=== PATIENT | female | born 1980 | race Two or more races ===

== ENCOUNTER 2025-07-17 11:54 | Emergency (ER) | payer MEDICAID, SELFPAY ==
[2025-07-17 11:55] VITALS: BMI 37.4
--- NOTE | 2025-07-17 11:59 | EKG_ITS ---
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
--- NOTE | 2025-07-17 12:19 | XR_ITS ---
Examination: PA lateral chest 2 views TECHNIQUE: Upright PA lateral chest 2 views Date and time: July 17, 2025 1234 hours INDICATIONS: Chest pain today. FINDINGS: Normal heart size. Lungs are clear. The osseous structures are intact IMPRESSION: No active disease.
--- NOTE | 2025-07-17 12:20 | PD.EDRME ---
Rapid Medical Screening Exam RME Arrival date/time: 07/17/25 11:54 45-year-old female with a history of hypertension presents to the emergency room with a chief complaint of right-sided sternal chest pain x 1 week I have greeted and performed a focused initial assessment of this patient. A comprehensive ED assessment and evaluation of the patient, analysis of all test results, and completion of the medical decision making process will be conducted by additional ED providers. Chief Complaint: Chest Pain Vital signs reviewed by provider: Yes
[2025-07-17 12:24] VITALS: BP 237/134; BP 239/120; PULSE 72; RESP 17; TEMP 37; O2SAT 97
[2025-07-17 12:46] VITALS: BP 237/134; PULSE 72
[2025-07-17 12:46] LABS: Basophils # (Auto) 0.1 Thou/mm3 (0.0-0.2); Basophils % (Auto) 1 % (0-2.5); Eosinophils # (Auto) 0.2 Thou/mm3 (0.0-0.5); Eosinophils % (Auto) 3 % (0-10); Hematocrit 45.6 % (36.0-46.0); Hemoglobin 15.4 g/dL (12.0-16.0); Immature Granulocytes Auto 0.01 Thou/mm3 (0.00-0.00); Lymphocytes # (Auto) 2.2 Thou/mm3 (1.0-4.8); Lymphocytes % (Auto) 27 % (10-50); Mean Corpuscular HGB Conc 33.8 g/dl (31.0-37.0); Mean Corpuscular Hemoglobin 30.5 pg (25.0-35.0); Mean Corpuscular Volume 90 fL (80-100); Monocytes # (Auto) 0.5 Thou/mm3 (0.0-0.8); Monocytes % (Auto) 7 % (0-12); Neutrophils # (Auto) 5.0 Thou/mm3 (1.8-7.7); Neutrophils % (Auto) 62 % (37-80); Nucleated Red Blood Cell # 0.00 Thou/mm3 (0.00-0.00); Nucleated Red Blood Cell % 0 /100 WBC (0); Platelet Count 183 Thou/mm3 (140-440); RDW Standard Deviation 41.0 fL (36.4-46.3); Red Blood Count 5.05 Miln/mm3 (4.00-5.20); White Blood Count 8.0 Thou/mm3 (3.6-11.0)
[2025-07-17 13:06] LABS: B-Type Natriuretic Peptide < 20 pg/mL (0-100)
[2025-07-17 13:10] LABS: Alanine Aminotransferase 22 U/L (10-49); Albumin, Serum 4.1 gm/dL (3.5-5.0); Albumin/Globulin Ratio 1.6 (1.2-2.2); Alkaline Phosphatase 88 U/L (46-116); Anion Gap 8 (7-16); Aspartate Amino Transferase 13 U/L (0-34); BUN/Creatinine Ratio 12 Ratio (12-20); Bilirubin,Total 0.3 mg/dL (0.3-1.2); Blood Urea Nitrogen 11 mg/dL (9-23); Calcium 9.3 mg/dL (8.3-10.6); Calcium (Corrected) 9.3 mg/dL (8.5-10.1); Carbon Dioxide 25.7 mMol/L (20.0-31.0); Chloride 107 mMol/L (98-107); Creatinine (Component) 0.9 mg/dL (0.6-1.3); Estimated Creatinine Clearance 92.5 mL/min (>60); Globulin 2.6 gm/dL (2.3-3.5); Glucose 92 mg/dL (74-106); Magnesium 1.9 mg/dL (1.6-2.6); Osmolality,Calculated 280 (275-295); Potassium 4.2 mMol/L (3.4-5.1); Sodium 141 mMol/L (136-145); Total Protein 6.7 gm/dL (5.7-8.2); Troponin I < 0.020 ng/mL (0.0-0.045); eGFR > 60 See Note
[2025-07-17 13:21] LABS: Collection Type, Urine Clean Catch
[2025-07-17 13:41] LABS: Bilirubin,Urine Negative (Negative); Blood,Urine Negative (Negative); Clarity,Urine Clear (Clear/Hazy); Color,Urine Lt-Yellow (Lt Yel-Yel); Culture Indicated,Urine Not Indicated; Glucose, Urine Negative (Negative); Ketones,Urine Negative (Negative); Leukocyte Esterase,Urine Positive (Negative); Nitrite,Urine Negative (Negative); PH,Urine 7.0 (5.0-7.0); Protein,Urine Trace (Neg - Trace); RBC,Urine 4 /hpf (0-3); Specific Gravity,Urine 1.024 (1.001-1.035); Squamous Epithelial Cell,Urine 3 /hpf (0-5); Urobilinogen,Urine Negative mg/dL (0.0-1.0); WBC,Urine 1 /hpf (0-5)
[2025-07-17 13:43] LABS: Amphetamine/Methamp Scrn,U Negative (Negative); Barbiturate Screen,Urine Negative (Negative); Benzodiazepines Screen,Urine Negative (Negative); Benzoylecgonine Screen, Ur Negative (Negative); Fentanyl Screen,Urine Negative (Negative); Opiate Screen,Urine Negative (Negative); THC Screen,Urine Negative (Negative)
[2025-07-17 14:23] VITALS: BP 161/98
--- NOTE | 2025-07-17 14:36 | EDNOTE_ITS ---
<Statement entered by Maranda Logan MD - 07/17/25 14:42> As co-signing physician, I was present and available for consult prn. I concur with the plan and care as documented by the midlevel provider. ED General RME/HPI General Chief complaint: Chest Pain Stated complaint: CHEST PAIN/COUGH/DIFF BREATHING x 1 WEEK Time Seen by Provider: 07/17/25 14:35 Arrival date/time: 07/17/25 11:54 CC: Left-sided site-specific chest pain along the costal sternal border. Intermittent x 1 week relieved with Tylenol denies shortness of breath difficulty breathing nausea vomiting headache. No prior history of similar events currently the pain is a 2-3 out of 10 scale. RME / HPI RME / HPI narrative: 07/17/25 11:54 45-year-old female with a history of hypertension presents to the emergency room with a chief complaint of right-sided sternal chest pain x 1 week I have greeted and performed a focused initial assessment of this patient. A comprehensive ED assessment and evaluation of the patient, analysis of all test results, and completion of the medical decision making process will be conducted by additional ED providers. Related Data Home Medications ?Medication ?Instructions ?Recorded ?Confirmed HIGH BLOOD PRESSURE ##0 09/23/15 Previous Rx's ?Medication ?Instructions ?Recorded Levaquin 500 mg 1 tab PO daily #7 tabs 09/23 flomax 0.4mg 1 tab PO daily #20 tabs 09/03 12/17 motrin 600mg 1 tab PO qidprn pain #30 tab s 09/23/15 Allergies Allergy/AdvReac Type Severity Reaction Status Date / Time No Known Allergies Allergy Verified 07/17/25 11:58 Review of Systems Review of Systems Narrative Review of Systems: GEN: No fever, no chills, no weight loss EYES: No discharge, no visual changes, no pain HEENT: No ear pain, no congestion, no sore throat PULM: No shortness of breath, no cough, no congestion CV: + chest pain, no dyspnea on exertion, no palpitations GI: No nausea, no vomiting, no diarrhea, no pain, no constipation : No frequency, no urgency, no dysuria MUSC/SKEL: No joint pain, no back pain SKIN: No rash PSYCH: No hallucinations, no depression HEME/LYMPH: No easy bleeding or bruising tendencies NEURO: No weakness, no headache Past Medical History Social History SMOKING STATUS: Current every day smoker ED Exam Narrative Physical exam: [General: Obese not in any acute distress Head normocephalic HEENT: Within acceptable limits Neck is supple nontender Chest equal chest rise site-specific tenderness to the left costal sternal margin. No pain in the xiphoid process of the right costal sternal margin. No other pain with palpation in the upper anterior chest on by both sides. Respiratory: Clear to auscultation no wheezes crackles or rubs CV: Rate rhythm is regular no murmurs rubs or clicks Abdomen is distended secondary to body habitus soft nontender no masses positive bowel sounds all 4 quadrants Back: No CVA tenderness no spinous process tenderness from cervical spine thoracic and lumbar spine Skin: Intact no petechiae rash induration ulceration or crepitus Extremities: Moving all extremity against resistance cap refill less than 2 seconds neurosensory intact Neuro: Awake alert oriented x3 Glascow coma 15 no focal deficits] Course Quality Measures none Orders Category Date Time Status EKG (ED ONLY) *Do not use* NOW Care 07/17/25 11:59 Completed EKG (ED Only) Stat Exams 07/17/25 11:59 Draft XR chest 2V Stat Exams 07/17/25 12:19 Completed B-Type Natriuretic Peptide Stat Lab 07/17/25 12:35 Completed CBC Stat Lab 07/17/25 12:35 Completed Comprehensive Metabolic Panel Stat Lab 07/17/25 12:35 Completed Drug Screen,Urine Stat Lab 07/17/25 13:16 Completed Magnesium Stat Lab 07/17/25 12:35 Completed Troponin I Stat Lab 07/17/25 12:35 Completed Urinalysis, C/S if Indicated Stat Lab 07/17/25 13:16 Completed cloNIDine HCL [Catapres] Med 07/17/25 12:30 Discontinued 0.2 mg PO X1 ONE Vital Signs Vital signs: Vital Signs Temperature 98.6 F 07/17/25 12:24 Pulse Rate 72 07/17/25 12:24 Respiratory Rate 17 07/17/25 12:24 Blood Pressure 237/134 H 07/17/25 12:24 Pulse Oximetry (%) 97 07/17/25 12:24 Oxygen Delivery Method Room Air 07/17/25 12:24 Discharge Plan Plan Patient Disposition: HOME (Self Care) Patient condition on transfer: Stable Prescriptions/Referrals Prescriptions/Med Rec: No Action HIGH BLOOD PRESSURE Qty: 0 Levaquin 500 mg 1 tab PO daily Qty: 7 0RF flomax 0.4mg 1 tab PO daily Qty: 20 0RF motrin 600mg 1 tab PO qidprn pain Qty: 30 0RF Referrals: Nick Younger PA-C [Primary Care Provider] - In 1 week Problem List Clinical Impression: Costochondritis Patient/Caregiver Discharge Instructions Education Materials: ED Chest Wall Pain, Costochondritis Additional Instructions: Take ibuprofen or Tylenol for pain if there is a worsening of symptoms by this follow-up with your primary care doctor or return the emergency room for reevaluation. Print Language: Syriac Stand Alone Forms: Nora Award Info., Patient Portal Info Letter PA/BESSIE Supervising Physician HANNAH/BESSIE Supervising Physician: Neftali Oneill ENP [facility] Clinical Information Provided by patient Medical Records Reviewed [facility] Labs/Rad/Tests considered, not Ordered None Chronic Illness/Social Conditions Add or document further as needed: Obesity EKG EKG Interpretation narrative: EKG performed at 1220 shows ventricular rate of 79 [place] interval 146 QRS of 83 QTc of 402 this normal sinus rhythm. Lab Interpretation Labs: interpreted by me Lab(s) interpretation(s): CBC shows no acute leukocytosis anemia thrombocytopenia CMP shows no electrolyte imbalances renal impairment transaminitis or T. bili elevation Troponin is less than 0.020 BMP within acceptable limits. Urine is negative for urinary tract infection. Leukocyte esterase negative bacteria negative. UDS is negative. Imaging Imaging interpretation: interpreted by me Provider imaging interpretation(s): Chest x-ray as interpreted by me is read by radiology as negative for any acute finding Medication Administration(s) Medication Administration History Discontinued Medications Clonidine (Clonidine Hcl 0.1 Mg Tablet) 0.2 mg PO X1 ONE Stop: 07/17/25 12:31 Last Admin: 07/17/25 12:46 Dose: 0.2 mg Documented By: None Diagnosis Differential diagnosis: ACS VT pneumonia Differential dx and/or dx ruled out: ACS VT Most likely dx, and/or detailed dx discussion: Costochondritis
== END 2025-07-17 15:00 | disposition home or self-care (01) ==
PROVIDERS: Nurse Practitioner Family; Emergency Provider Emergency Medicine; PCP Physician Assistant
DX: M94.0 Chondrocostal junction syndrome [Tietze] (principal); I10 Essential (primary) hypertension; F17.210 Nicotine dependence, cigarettes, uncomplicated
CPT/HCPCS: 36415; 71046; 80053; 80307; 81001; 83735; 83880; 84484; 85025; 93005; 99283; A9270